=== PATIENT | male | born 1990 | race Caucasian/White ===

== ENCOUNTER 2017-12-20 20:53 | Emergency (ER) | payer OTHER, MEDICAID ==
[~2017-12-20] VITALS: Ht 154.9 cm; Wt 63.5 kg
[2017-12-20 20:53] VITALS: BP_SYST 118
[2017-12-20] MEDS ORDERED: GASTROGRAFIN 120 ML ONE (21:13)
[2017-12-20 21:41] VITALS: BP_SYST 118
== END 2017-12-20 21:41 | disposition home or self-care (01) ==
LOC: SED 20:53
DX: Z43.1 Encounter for attention to gastrostomy (principal); G80.9 Cerebral palsy, unspecified; I10 Essential (primary) hypertension
CPT/HCPCS: 43760; 74240; 99284; Q9963

== ENCOUNTER 2022-04-18 21:38 | Inpatient (IN) | payer OTHER, MEDICAID ==
[~2022-04-18] VITALS: Ht 152.4 cm; Wt 49.9 kg
[2022-04-18 21:43] VITALS: BP_SYST 77
[2022-04-18] MEDS ORDERED: NACL 0.9% 2,000 ML IV ONE (21:45)
[2022-04-18] MEDS ORDERED: PIPERACILLIN/TAZO 3.375 GM in NS 50 ML IV ONE (22:00)
[2022-04-18] MEDS ORDERED: VANCOMYCIN HCL 1,000 MG in NS 250 ML IV ONE (22:00)
[2022-04-18] MEDS ORDERED: VANCOMYCIN HCL 1000 MG/VIAL IV ONE (22:10)
[2022-04-18] MEDS ORDERED: PIPERACILLIN/TAZOBACTAM 3.375 GM/VIAL (ZOSYN) IV ONE (22:12)
[2022-04-18 22:13] LABS: HEMATOCRIT 32.3 % (36-54); HEMOGLOBIN 10.9 g/dL (14.0-18.0); MEAN CORPUSCULAR HEMOGLOBIN 30 pg (27-31); MEAN CORPUSCULAR HGB CONC 34 % (32-36); MEAN CORPUSCULAR VOLUME 88 fL (79.0-98.0); PLATELET COUNT (AUTO) 149 K/uL (130-430); RED CELL DISTRIBUTION WIDTH 13.5 % (9.0-15.0); WHITE BLOOD COUNT (AUTO) 21.2 K/uL (4.8-10.8)
[2022-04-18] MEDS ORDERED: ACETAMINOPHEN 650 MG SUPP.RECT RC ONE ×2 (22:30→22:37)
[2022-04-18 22:33] LABS: CALCIUM 8.1 mg/dL (8.4-11.0); CREATININE 0.45 mg/dL (0.55-1.30); POTASSIUM 3.1 mmol/L (3.5-5.1)
[2022-04-18] MEDS ORDERED: ACETAMINOPHEN 325 MG SUPP.RECT RC ONE (22:36)
[2022-04-18 22:48] LABS: ALBUMIN 2.4 g/dL (3.4-4.8); TOTAL BILIRUBIN 0.5 mg/dL (0.0-1.0)
[2022-04-18 23:01] LABS: BAND % (MANUAL) 3 % (0-6); BASOPHILS % (MANUAL) 0 % (0-2); EOSINOPHILS % (MANUAL) 0 % (0-7); LYMPHOCYTES % (MANUAL) 3 % (20-46); MONOCYTES % (MANUAL) 3 % (0-11)
[2022-04-18 23:29] LABS: BILIRUBIN,URINE NEGATIVE (NEGATIVE); BLOOD, URINE 1+ (NEGATIVE); CLARITY/URINE CLEAR (CLEAR); COLOR,URINE YELLOW (YELLOW); GLUCOSE,URINE NEGATIVE (NEGATIVE); KETONES,URINE NEGATIVE (NEGATIVE); LEUKOCYTE ESTERASE ,URINE 2+ (NEGATIVE); NITRITE, URINE NEGATIVE (NEGATIVE); PROTEIN URINE 1+ (NEGATIVE)
[2022-04-18] MEDS ORDERED: KCL 20 mEq in 100 mL (PREMIX) 100 ML IV ONE (23:45)
[2022-04-19] VITALS (15 sets, daily range): BP systolic 79–134
[2022-04-19] MEDS ORDERED: IPRATROPIUM/ALBUTEROL SULFATE 3 ML AMPUL.NEB (DUONEB) INH ONE (00:15)
[2022-04-19 00:54] LABS: BACTERIA,URINE None Seen /HPF (None Seen); MUCUS,URINE 2+ /LPF (None Seen); WBC,URINE 20-50 /HPF (0-3)
[2022-04-19] MEDS ORDERED: ACETAMINOPHEN 325 MG TABLET GT PRN (01:00)
[2022-04-19] MEDS ORDERED: NACL 0.9% 1,000 ML IV SCH ×2 (01:00→01:30)
[2022-04-19] MEDS ORDERED: IPRATROPIUM/ALBUTEROL SULFATE 3 ML AMPUL.NEB (DUONEB) INH PRN (01:00)
[2022-04-19] MEDS ORDERED: KETOROLAC TROMETHAMINE 30 MG VIAL IVP ONE (01:30)
[2022-04-19] MEDS ORDERED: POLY1POW14 GT (01:45)
[2022-04-19] MEDS ORDERED: FAMO20TA8 GT (01:45)
[2022-04-19] MEDS ORDERED: TYLL650 GT (01:45)
[2022-04-19] MEDS ORDERED: MOM GT (01:45)
[2022-04-19] MEDS ORDERED: ASCO500T20 GT (01:45)
[2022-04-19] MEDS ORDERED: AMIN30LI2 GT (01:45)
[2022-04-19] MEDS ORDERED: ZINC50TA69 GT (01:45)
[2022-04-19] MEDS ORDERED: GLYC2TAB21 GT (01:45)
[2022-04-19] MEDS ORDERED: MULT-1117 GT (01:45)
[2022-04-19] MEDS ORDERED: POTA-197 GT (01:45)
[2022-04-19] MEDS ORDERED: ONDA4TAB55 GT (01:45)
[2022-04-19] MEDS ORDERED: IPRA4AER INH (01:45)
[2022-04-19] MEDS ORDERED: PIPERACILLIN/TAZO 3.375 GM in NS 50 ML IV SCH (06:00)
[2022-04-19] MEDS ORDERED: NACL 0.9% 1,000 ML IV STA (06:20)
[2022-04-19] MEDS: NACL 0.9% 1,000 ML IV SCH ×8 (06:23→13:37)
[2022-04-19] MEDS ORDERED: PIPERACILLIN/TAZOBACTAM 3.375 GM/VIAL (ZOSYN) IV ONE (06:29)
[2022-04-19] MEDS ORDERED: NOREPINEPHRINE BITARTRATE 4 MG in D5W 246 ML IV PRN ×2 (07:45→14:15)
[2022-04-19] MEDS ORDERED: NOREPINEPHRINE 4 MG/4 ML VIAL IV ONE (07:51)
[2022-04-19] MEDS: IPRATROPIUM/ALBUTEROL SULFATE 3 ML AMPUL.NEB (DUONEB) INH SCH ×5 (08:05→23:18)
[2022-04-19] MEDS ORDERED: NON-FORMULARY MEDICATION (Amino Acids/Protein Hydrolys (Pro-Stat Liquid) 30 ML) GT SCH (09:30)
[2022-04-19] MEDS ORDERED: FAMOTIDINE 20 MG TABLET GT ONE (10:00)
[2022-04-19] MEDS ORDERED: ASCORBIC ACID 500 MG TABLET GT ONE (10:00)
[2022-04-19] MEDS ORDERED: POLYETHYLENE GLYCOL 3350, 17 GM/ POWD.PACK GT PRN (10:45)
[2022-04-19] MEDS: VANCOMYCIN HCL 750 MG in NS 250 ML IV SCH ×2 (11:00→23:07)
[2022-04-19] MEDS ORDERED: D5NS 1,000 ML IV SCH (11:00)
[2022-04-19 11:32] LABS: INR 1.3 (0.80-1.20); PROTHROMBIN TIME 13.2 SECS (9.5-12.5)
[2022-04-19 11:50] LABS: BASOPHILS % (AUTO) 0.1 % (0.0-2.0); HEMOGLOBIN 11.4 g/dL (14.0-18.0); LYMPHOCYTES # (AUTO) 0.8 K/uL (1.0-5.5); LYMPHOCYTES % (AUTO) 3.7 % (20.5-51.5); MEAN CORPUSCULAR HEMOGLOBIN 30 pg (27-31); MEAN CORPUSCULAR HGB CONC 33 % (32-36); MEAN CORPUSCULAR VOLUME 91 fL (79.0-98.0); MONOCYTES # (AUTO) 1.6 K/uL (0.0-1.0); MONOCYTES % (AUTO) 7.1 % (1.7-9.3); NEUTROPHILS # (AUTO) 19.9 K/uL (1.8-7.7); NEUTROPHILS % (AUTO) 89.1 % (40.0-70.0); PLATELET COUNT (AUTO) 114 K/uL (130-430); RED BLOOD CELL COUNT(AUTO) 3.83 MIL/uL (4.2-6.2); RED CELL DISTRIBUTION WIDTH 14.3 % (9.0-15.0); WHITE BLOOD COUNT (AUTO) 22.4 K/uL (4.8-10.8)
[2022-04-19 11:55] LABS: CALCIUM 7.8 mg/dL (8.4-11.0); CREATININE 0.5 mg/dL (0.55-1.30); TOTAL BILIRUBIN 0.4 mg/dL (0.0-1.0)
[2022-04-19 12:01] LABS: POTASSIUM 2.9 mmol/L (3.5-5.1)
[2022-04-19] MEDS: POTASSIUM CHLORIDE 20 MEQ/PKT PACKET GT PRN (12:29)
[2022-04-19] MEDS: PIPERACILLIN/TAZOBACTAM 3.375 GM/ D5W 50 ML IV SCH ×4 (12:29→18:06)
[2022-04-19] MEDS ORDERED: KCL 40 mEq in D5W 1000 mL 1,000 ML IV ONE (12:30)
[2022-04-19] MEDS ORDERED: KCL 20 mEq in 100 mL (PREMIX) 100 ML IV ONE ×2 (13:00→15:00)
[2022-04-19] MEDS ORDERED: POTASSIUM CHLORIDE 20 MEQ/PKT PACKET GT ONE (13:45)
[2022-04-19] MEDS: KCL 20 mEq in D5NS 1000 mL 1,000 ML IV SCH ×2 (14:30→21:10)
[2022-04-19] MEDS: GLYCOPYRROLATE 1 MG TABLET GT SCH ×2 (15:00→21:24)
[2022-04-19] MEDS: FAMOTIDINE 20 MG TABLET GT SCH (21:24)
[2022-04-20] VITALS (22 sets, daily range): BP systolic 91–131
[2022-04-20] MEDS: PIPERACILLIN/TAZOBACTAM 3.375 GM/ D5W 50 ML IV SCH ×6 (00:46→11:42)
[2022-04-20] MEDS: IPRATROPIUM/ALBUTEROL SULFATE 3 ML AMPUL.NEB (DUONEB) INH SCH ×5 (04:19→19:45)
[2022-04-20] MEDS: KCL 20 mEq in D5NS 1000 mL 1,000 ML IV SCH ×2 (05:42→09:50)
[2022-04-20 06:09] LABS: BASOPHILS % (AUTO) 0.1 % (0.0-2.0); HEMATOCRIT 27.9 % (36-54); HEMOGLOBIN 9.7 g/dL (14.0-18.0); LYMPHOCYTES # (AUTO) 0.6 K/uL (1.0-5.5); LYMPHOCYTES % (AUTO) 5.5 % (20.5-51.5); MEAN CORPUSCULAR HEMOGLOBIN 31 pg (27-31); MEAN CORPUSCULAR HGB CONC 35 % (32-36); MEAN CORPUSCULAR VOLUME 88 fL (79.0-98.0); MONOCYTES # (AUTO) 0.8 K/uL (0.0-1.0); MONOCYTES % (AUTO) 8.3 % (1.7-9.3); NEUTROPHILS # (AUTO) 8.6 K/uL (1.8-7.7); NEUTROPHILS % (AUTO) 86.1 % (40.0-70.0); PLATELET COUNT (AUTO) 117 K/uL (130-430); RED BLOOD CELL COUNT(AUTO) 3.17 MIL/uL (4.2-6.2); RED CELL DISTRIBUTION WIDTH 14.4 % (9.0-15.0)
[2022-04-20 07:08] LABS: CALCIUM 7.9 mg/dL (8.4-11.0); CREATININE 0.41 mg/dL (0.55-1.30); POTASSIUM 3.5 mmol/L (3.5-5.1)
[2022-04-20] MEDS: MULTIVITAMINS TAB 1 TABLET GT SCH (08:03)
[2022-04-20] MEDS: FAMOTIDINE 20 MG TABLET GT SCH ×2 (08:04→20:44)
[2022-04-20] MEDS: ASCORBIC ACID 500 MG TABLET GT SCH (08:04)
[2022-04-20] MEDS: GLYCOPYRROLATE 1 MG TABLET GT SCH ×3 (08:04→20:44)
[2022-04-20] MEDS: VANCOMYCIN HCL 750 MG in NS 250 ML IV SCH ×2 (10:18→23:00)
[2022-04-20] MEDS: ACETAMINOPHEN 650 MG/20.3 ML UDC GT PRN (19:39)
[2022-04-20] MEDS: CEFEPIME 2 GM in D5W 100 ML IV SCH (20:44)
[2022-04-21] VITALS: BP_SYST 121
[2022-04-21] MEDS: IPRATROPIUM/ALBUTEROL SULFATE 3 ML AMPUL.NEB (DUONEB) INH SCH ×7 (00:50→23:07)
[2022-04-21] MEDS: CEFEPIME 2 GM in D5W 100 ML IV SCH ×2 (10:00→20:59)
[2022-04-21] MEDS: ASCORBIC ACID 500 MG TABLET GT SCH (10:00)
[2022-04-21] MEDS: MULTIVITAMINS TAB 1 TABLET GT SCH (10:01)
[2022-04-21] MEDS: GLYCOPYRROLATE 1 MG TABLET GT SCH ×3 (10:01→20:59)
[2022-04-21] MEDS: FAMOTIDINE 20 MG TABLET GT SCH ×2 (10:01→20:59)
[2022-04-21] MEDS: VANCOMYCIN HCL 750 MG in NS 250 ML IV SCH (11:00)
[2022-04-21 11:56] LABS: BASOPHILS % (AUTO) 0.6 % (0.0-2.0); EOSINOPHILS % (AUTO) 0.5 % (0.0-4.0); HEMATOCRIT 28.4 % (36-54); HEMOGLOBIN 9.7 g/dL (14.0-18.0); LYMPHOCYTES # (AUTO) 0.7 K/uL (1.0-5.5); LYMPHOCYTES % (AUTO) 12.6 % (20.5-51.5); MEAN CORPUSCULAR HEMOGLOBIN 30 pg (27-31); MEAN CORPUSCULAR HGB CONC 34 % (32-36); MEAN CORPUSCULAR VOLUME 88 fL (79.0-98.0); MONOCYTES # (AUTO) 0.7 K/uL (0.0-1.0); MONOCYTES % (AUTO) 12.2 % (1.7-9.3); NEUTROPHILS # (AUTO) 4.3 K/uL (1.8-7.7); NEUTROPHILS % (AUTO) 74.1 % (40.0-70.0); PLATELET COUNT (AUTO) 122 K/uL (130-430); RED BLOOD CELL COUNT(AUTO) 3.24 MIL/uL (4.2-6.2); RED CELL DISTRIBUTION WIDTH 14.1 % (9.0-15.0); WHITE BLOOD COUNT (AUTO) 5.8 K/uL (4.8-10.8)
[2022-04-21 13:38] VITALS: BP_SYST 118
[2022-04-21 16:09] VITALS: BP_SYST 123
[2022-04-21] MEDS: VANCOMYCIN HCL 1,000 MG in NS 250 ML IV SCH (20:58)
[2022-04-21 21:00] VITALS: BP_SYST 125
[2022-04-22 02:00] VITALS: BP_SYST 119
[2022-04-22] MEDS: IPRATROPIUM/ALBUTEROL SULFATE 3 ML AMPUL.NEB (DUONEB) INH SCH ×4 (03:00→15:16)
[2022-04-22] MEDS: VANCOMYCIN HCL 1,000 MG in NS 250 ML IV SCH ×2 (03:00→10:31)
[2022-04-22 06:33] LABS: BASOPHILS % (AUTO) 0.5 % (0.0-2.0); HEMATOCRIT 28.7 % (36-54); LYMPHOCYTES % (AUTO) 19.7 % (20.5-51.5); MEAN CORPUSCULAR HEMOGLOBIN 30 pg (27-31); MEAN CORPUSCULAR HGB CONC 35 % (32-36); MEAN CORPUSCULAR VOLUME 87 fL (79.0-98.0); MONOCYTES # (AUTO) 0.6 K/uL (0.0-1.0); MONOCYTES % (AUTO) 12.3 % (1.7-9.3); NEUTROPHILS # (AUTO) 3.4 K/uL (1.8-7.7); NEUTROPHILS % (AUTO) 66.5 % (40.0-70.0); PLATELET COUNT (AUTO) 130 K/uL (130-430); RED BLOOD CELL COUNT(AUTO) 3.31 MIL/uL (4.2-6.2); RED CELL DISTRIBUTION WIDTH 13.9 % (9.0-15.0); WHITE BLOOD COUNT (AUTO) 5.2 K/uL (4.8-10.8)
[2022-04-22 07:05] LABS: CALCIUM 7.9 mg/dL (8.4-11.0); CREATININE 0.34 mg/dL (0.55-1.30)
[2022-04-22] MEDS: GLYCOPYRROLATE 1 MG TABLET GT SCH ×3 (08:16→20:10)
[2022-04-22] MEDS: MULTIVITAMINS TAB 1 TABLET GT SCH (08:16)
[2022-04-22] MEDS: FAMOTIDINE 20 MG TABLET GT SCH ×2 (08:16→20:10)
[2022-04-22] MEDS: ASCORBIC ACID 500 MG TABLET GT SCH (08:16)
[2022-04-22] MEDS: CEFEPIME 2 GM in D5W 100 ML IV SCH (08:17)
[2022-04-22 09:19] VITALS: BP_SYST 119
[2022-04-22 12:12] VITALS: BP_SYST 109
[2022-04-22] MEDS ORDERED: POTASSIUM CHLORIDE 20 MEQ/PKT PACKET GT ONE (14:15)
[2022-04-22] MEDS ORDERED: POTASSIUM CHLORIDE 20 MEQ/PKT PACKET PO ONE (14:15)
[2022-04-22 16:00] VITALS: BP_SYST 119
[2022-04-22 20:00] VITALS: BP_SYST 117
[2022-04-23] MEDS: IPRATROPIUM/ALBUTEROL SULFATE 3 ML AMPUL.NEB (DUONEB) INH SCH ×6 (00:01→15:00)
[2022-04-23 00:50] VITALS: BP_SYST 116
[2022-04-23 06:51] LABS: BASOPHILS % (AUTO) 0.6 % (0.0-2.0); EOSINOPHILS # (AUTO) 0.1 K/uL (0.0-0.4); EOSINOPHILS % (AUTO) 1.6 % (0.0-4.0); HEMATOCRIT 30.7 % (36-54); HEMOGLOBIN 10.7 g/dL (14.0-18.0); LYMPHOCYTES # (AUTO) 0.9 K/uL (1.0-5.5); LYMPHOCYTES % (AUTO) 17.2 % (20.5-51.5); MEAN CORPUSCULAR HEMOGLOBIN 30 pg (27-31); MEAN CORPUSCULAR HGB CONC 35 % (32-36); MEAN CORPUSCULAR VOLUME 86 fL (79.0-98.0); MONOCYTES # (AUTO) 0.6 K/uL (0.0-1.0); NEUTROPHILS # (AUTO) 3.5 K/uL (1.8-7.7); NEUTROPHILS % (AUTO) 69.6 % (40.0-70.0); PLATELET COUNT (AUTO) 154 K/uL (130-430); RED BLOOD CELL COUNT(AUTO) 3.56 MIL/uL (4.2-6.2); WHITE BLOOD COUNT (AUTO) 5.1 K/uL (4.8-10.8)
[2022-04-23 08:00] VITALS: BP_SYST 113
[2022-04-23 08:07] LABS: CALCIUM 8.2 mg/dL (8.4-11.0); CREATININE 0.36 mg/dL (0.55-1.30); POTASSIUM 3.4 mmol/L (3.5-5.1)
[2022-04-23] MEDS: MULTIVITAMINS TAB 1 TABLET GT SCH (09:02)
[2022-04-23] MEDS: FAMOTIDINE 20 MG TABLET GT SCH (09:02)
[2022-04-23] MEDS: GLYCOPYRROLATE 1 MG TABLET GT SCH ×2 (09:02→15:56)
[2022-04-23] MEDS: POTASSIUM CHLORIDE 20 MEQ/PKT PACKET GT PRN (09:03)
[2022-04-23] MEDS: ASCORBIC ACID 500 MG TABLET GT SCH (09:03)
[2022-04-23] MEDS: ACETAMINOPHEN 650 MG/20.3 ML UDC GT PRN (09:04)
[2022-04-23 12:01] VITALS: BP_SYST 108
[2022-04-23 14:48] VITALS: BP_SYST 108; BP_SYST 113
[2022-04-23 16:32] VITALS: BP_SYST 115
== END 2022-04-23 16:40 | DRG 871 ==
LOC: SED 21:38 → STU 04-19 00:52 → SIC 04-19 10:35 → STU 04-20 21:24
PROVIDERS: ADMIT Internal Medicine; ATTEND Internal Medicine
DX: A41.2 Sepsis due to unspecified staphylococcus (principal); E43 Unspecified severe protein-calorie malnutrition; J69.0 Pneumonitis due to inhalation of food and vomit; R65.21 Severe sepsis with septic shock; J96.00 Acute respiratory failure, unspecified whether with hypoxia or hypercapnia; N13.6 Pyonephrosis; G80.9 Cerebral palsy, unspecified; Z20.822 Contact with and (suspected) exposure to COVID-19; B96.89 Other specified bacterial agents as the cause of diseases classified elsewhere; D64.9 Anemia, unspecified; F03.90 Unspecified dementia, unspecified severity, without behavioral disturbance, psychotic disturbance, mood disturbance, and anxiety; Z87.440 Personal history of urinary (tract) infections; Z79.899 Other long term (current) drug therapy; Z93.1 Gastrostomy status; Z68.21 Body mass index [BMI] 21.0-21.9, adult
CPT/HCPCS: 36415; 71045; 76770; 80048; 80053; 80202; 81000; 83605; 84132; 85007; 85025; 85027; 85610-TC; 85730-TC; 87040; 87081; 94640; 94760; 96374; 96375; 99291; G0378; J0692; J0696; J1885; J2543; J3370; J3480; J7050; J7060

== ENCOUNTER 2022-10-09 04:15 | Inpatient (IN) | payer OTHER, MEDICAID ==
[~2022-10-09] VITALS: Ht 152.4 cm; Wt 44.9 kg
[~2022-10-09 04:15] MED LIST: AMIN30LI2 GT; ASCO500T20 GT; FAMO20TA8 GT; GLYC2TAB21 GT; MULT-1117 GT; POLY1POW14 GT; POTA-197 GT; TYLL650 GT
[2022-10-09] MEDS ORDERED: NACL 0.9% 1,000 ML IV ONE (04:30)
[2022-10-09 04:33] VITALS: BP_SYST 114
[2022-10-09 05:02] LABS: BASOPHILS % (AUTO) 0.5 % (0.0-2.0); EOSINOPHILS % (AUTO) 0.8 % (0.0-4.0); HEMATOCRIT 31.9 % (36-54); LYMPHOCYTES # (AUTO) 1.1 K/uL (1.0-5.5); LYMPHOCYTES % (AUTO) 20.9 % (20.5-51.5); MEAN CORPUSCULAR HEMOGLOBIN 30 pg (27-31); MEAN CORPUSCULAR HGB CONC 35 % (32-36); MEAN CORPUSCULAR VOLUME 85 fL (79.0-98.0); MONOCYTES # (AUTO) 0.9 K/uL (0.0-1.0); MONOCYTES % (AUTO) 17.4 % (1.7-9.3); NEUTROPHILS # (AUTO) 3.3 K/uL (1.8-7.7); NEUTROPHILS % (AUTO) 60.4 % (40.0-70.0); PLATELET COUNT (AUTO) 179 K/uL (130-430); RED BLOOD CELL COUNT(AUTO) 3.74 MIL/uL (4.2-6.2); RED CELL DISTRIBUTION WIDTH 14.4 % (9.0-15.0); WHITE BLOOD COUNT (AUTO) 5.4 K/uL (4.8-10.8)
[2022-10-09] MEDS ORDERED: PIPERACILLIN/TAZO 3.375 GM in NS 50 ML IV ONE (05:15)
[2022-10-09 05:21] LABS: ANION GAP 7 (5-15); CALCIUM 8.8 mg/dL (8.4-11.0); CHLORIDE 99 mmol/L (98-107); CREATININE 0.22 mg/dL (0.55-1.30); GLUCOSE 104 mg/dL (70-99); UREA NITROGEN, BLOOD 19 mg/dL (8-21)
[2022-10-09 05:28] LABS: ALANINE AMINOTRANSFERASE 58 U/L (12-78); ALBUMIN 2.8 g/dL (3.4-4.8); ASPARTATE AMINOTRANSFERASE 37 U/L (10-37); GFR AFRICAN AMERICAN 648 mL/min (>90); TOTAL BILIRUBIN 0.3 mg/dL (0.0-1.0)
[2022-10-09] MEDS ORDERED: PIPERACILLIN/TAZOBACTAM 3.375 GM/VIAL (ZOSYN) IV ONE (05:37)
[2022-10-09] MEDS ORDERED: VANCOMYCIN HCL 1,000 MG in NS 250 ML IV ONE (06:00)
[2022-10-09] MEDS ORDERED: VANCOMYCIN HCL 1000 MG/VIAL IV ONE (06:42)
[2022-10-09] MEDS ORDERED: IPRATROPIUM/ALBUTEROL SULFATE 3 ML AMPUL.NEB (DUONEB) INH SCH (07:00)
[2022-10-09] MEDS ORDERED: POLY15DR31 EACH EYE (07:08)
[2022-10-09] MEDS ORDERED: DOCU-144 GT (07:09)
[2022-10-09] MEDS ORDERED: [UNRECOGNIZED DRUG - CODE] OT (07:10)
[2022-10-09] MEDS ORDERED: CARB15DR93 EACH EAR (07:11)
[2022-10-09] MEDS ORDERED: IPRA3AMP9 INH (07:12)
[2022-10-09] MEDS ORDERED: MINE3.5O13 OP (07:13)
[2022-10-09] MEDS ORDERED: MULT-1094 GT (07:15)
[2022-10-09 07:17] LABS: BILIRUBIN,URINE NEGATIVE (NEGATIVE); BLOOD, URINE 3+ (NEGATIVE); CLARITY/URINE TURBID (CLEAR); COLOR,URINE YELLOW (YELLOW); GLUCOSE,URINE NEGATIVE (NEGATIVE); KETONES,URINE NEGATIVE (NEGATIVE); LEUKOCYTE ESTERASE ,URINE 3+ (NEGATIVE); NITRITE, URINE POSITIVE (NEGATIVE); PROTEIN URINE 1+ (NEGATIVE); UROBILINOGEN,URINE 0.2 (0.2-1.0)
[2022-10-09] MEDS ORDERED: [UNRECOGNIZED DRUG - CODE] GT (07:19)
[2022-10-09] MEDS ORDERED: LOPE2CAP GT (07:21)
[2022-10-09] MEDS ORDERED: LOPE-179 GT (07:22)
[2022-10-09] MEDS ORDERED: ERYEYE EACH EYE (07:23)
[2022-10-09] MEDS ORDERED: BISA10SU61 RC (07:24)
[2022-10-09] MEDS ORDERED: IBUP-1970 GT (07:25)
[2022-10-09] MEDS ORDERED: MIDO2.5T GT (07:26)
[2022-10-09 07:40] LABS: BACTERIA,URINE MANY /HPF (None Seen); WBC,URINE 20-50 /HPF (0-3)
[2022-10-09 07:41] LABS: URINE AMORPHOUS PHOSPHATES 2+ /HPF (None Seen)
[2022-10-09 10:20] VITALS: BP_SYST 91
[2022-10-09] MEDS ORDERED: IBUPROFEN 800 MG TABLET GT PRN (11:45)
[2022-10-09] MEDS ORDERED: LOPERAMIDE HCL 1 MG/7.5 ML LIQUID UDC GT SCH (11:45)
[2022-10-09] MEDS ORDERED: BISACODYL 10 MG/SUPPOSITORY RC PRN (11:45)
[2022-10-09] MEDS ORDERED: LOPERAMIDE HCL 2 MG CAPSULE GT PRN (11:45)
[2022-10-09] MEDS ORDERED: ERYTHROMYCIN 0.5% EYE OINT 3.5 GM OP PRN (11:45)
[2022-10-09] MEDS ORDERED: IPRATROPIUM/ALBUTEROL SULFATE 3 ML AMPUL.NEB (DUONEB) INH PRN (11:45)
[2022-10-09] MEDS ORDERED: DOCUSATE SODIUM 100 MG CAPSULE PO PRN (11:45)
[2022-10-09] MEDS ORDERED: ACETAMINOPHEN 650 MG/20.3 ML UDC GT PRN (11:45)
[2022-10-09] MEDS ORDERED: MIDODRINE HCL 2.5 MG TABLET (PROAMATINE) GT PRN (11:45)
[2022-10-09] MEDS ORDERED: POLYETHYLENE GLYCOL 3350, 17 GM/ POWD.PACK GT PRN (11:45)
[2022-10-09] MEDS: KCL 20 mEq in D5NS 1000 mL 1,000 ML IV SCH (11:53)
[2022-10-09] MEDS ORDERED: ASCORBIC ACID 500 MG TABLET GT ONE (12:00)
[2022-10-09] MEDS ORDERED: PIPERACILLIN/TAZO 3.375 GM in NS 50 ML IV SCH (12:00)
[2022-10-09] MEDS: ALBUTEROL MDI INHALATION 8 GM INH INH SCH ×2 (12:14→20:03)
[2022-10-09] MEDS ORDERED: POTASSIUM CHLORIDE 20 MEQ/PKT PACKET GT PRN (12:15)
[2022-10-09] MEDS ORDERED: DOCUSATE SODIUM 100 MG/10 ML UDC PO PRN (12:15)
[2022-10-09] MEDS ORDERED: ALBUTEROL MDI INHALATION 8 GM INH INH PRN (12:15)
[2022-10-09 12:57] VITALS: BP_SYST 98
[2022-10-09] MEDS ORDERED: ALBUTEROL SULFATE 0.083% 2.5 MG/3 ML VIAL.NEB INH SCH (13:00)
[2022-10-09] MEDS ORDERED: PEG 400/HYPROMELLOSE/GLYCERIN 15 ML DROPS OP PRN (13:00)
[2022-10-09] MEDS: cefTRIAXone 1 GM in D5W 50 ML IV SCH (13:54)
[2022-10-09] MEDS: AZITHROMYCIN 500 MG in NS 250 ML IV SCH (13:54)
[2022-10-09] MEDS ORDERED: VANCOMYCIN HCL 750 MG in NS 250 ML IV SCH (14:00)
[2022-10-09] MEDS: GLYCOPYRROLATE 1 MG TABLET GT SCH ×2 (15:28→22:17)
[2022-10-09 16:05] VITALS: BP_SYST 114
[2022-10-09 20:00] VITALS: BP_SYST 101
[2022-10-09] MEDS ORDERED: CARBAMIDE PEROXIDE 6.5% EAR DROPS (DEBROX) OT SCH (21:00)
[2022-10-09] MEDS: ENOXAPARIN SODIUM 40 MG/0.4 ML SYRINGE SUBCUT SCH (22:15)
[2022-10-09] MEDS: FAMOTIDINE 20 MG TABLET GT SCH (22:17)
[2022-10-09] MEDS: METHYLPREDNISOLONE SOD SUCC 40 MG/ML VIAL IVP SCH (22:17)
[2022-10-09] MEDS: PEG 400/HYPROMELLOSE/GLYCERIN 15 ML DROPS EACH EYE SCH (22:18)
[2022-10-10] MEDS: KCL 20 mEq in D5NS 1000 mL 1,000 ML IV SCH ×3 (00:43→12:54)
[2022-10-10] MEDS: ALBUTEROL MDI INHALATION 8 GM INH INH SCH ×4 (00:44→20:46)
[2022-10-10 02:08] VITALS: BP_SYST 101
[2022-10-10 08:00] VITALS: BP_SYST 94
[2022-10-10] MEDS ORDERED: MULTIVITS CA MINERALS GT SCH (09:00)
[2022-10-10] MEDS ORDERED: NON-FORMULARY MEDICATION (Amino Acids/Protein Hydrolys (Pro-Stat Liquid) 30 ML) GT SCH (09:00)
[2022-10-10] MEDS ORDERED: [UNRECOGNIZED DRUG - OTHER] GT SCH (09:00)
[2022-10-10] MEDS ORDERED: IRON GT SCH (09:00)
[2022-10-10 09:05] LABS: BASOPHILS % (AUTO) 0.3 % (0.0-2.0); HEMATOCRIT 29.7 % (36-54); HEMOGLOBIN 9.9 g/dL (14.0-18.0); LYMPHOCYTES # (AUTO) 0.7 K/uL (1.0-5.5); LYMPHOCYTES % (AUTO) 16.6 % (20.5-51.5); MEAN CORPUSCULAR HEMOGLOBIN 30 pg (27-31); MEAN CORPUSCULAR HGB CONC 33 % (32-36); MEAN CORPUSCULAR VOLUME 89 fL (79.0-98.0); MONOCYTES # (AUTO) 0.3 K/uL (0.0-1.0); MONOCYTES % (AUTO) 7.9 % (1.7-9.3); NEUTROPHILS % (AUTO) 75.2 % (40.0-70.0); PLATELET COUNT (AUTO) 149 K/uL (130-430); RED BLOOD CELL COUNT(AUTO) 3.32 MIL/uL (4.2-6.2)
[2022-10-10] MEDS: MULTIVITAMINS TAB 1 TABLET GT SCH (09:38)
[2022-10-10] MEDS: GLYCOPYRROLATE 1 MG TABLET GT SCH ×3 (09:38→22:22)
[2022-10-10] MEDS: ASCORBIC ACID 500 MG TABLET GT SCH (09:39)
[2022-10-10] MEDS: FAMOTIDINE 20 MG TABLET GT SCH ×2 (09:39→22:22)
[2022-10-10] MEDS: PEG 400/HYPROMELLOSE/GLYCERIN 15 ML DROPS EACH EYE SCH ×2 (09:39→21:00)
[2022-10-10] MEDS: METHYLPREDNISOLONE SOD SUCC 40 MG/ML VIAL IVP SCH ×2 (10:20→22:22)
[2022-10-10 11:40] LABS: ANION GAP 7 (5-15); CALCIUM 8.7 mg/dL (8.4-11.0); CHLORIDE 107 mmol/L (98-107); GLUCOSE 174 mg/dL (70-99); UREA NITROGEN, BLOOD 13 mg/dL (8-21)
[2022-10-10 11:54] VITALS: BP_SYST 107
[2022-10-10 11:57] LABS: CREATININE < 0.20 mg/dL (0.55-1.30); GFR AFRICAN AMERICAN 723 mL/min (>90)
[2022-10-10] MEDS: cefTRIAXone 1 GM in D5W 50 ML IV SCH (12:12)
[2022-10-10] MEDS: AZITHROMYCIN 500 MG in NS 250 ML IV SCH (12:53)
[2022-10-10 17:44] VITALS: BP_SYST 105
[2022-10-10] MEDS: ENOXAPARIN SODIUM 40 MG/0.4 ML SYRINGE SUBCUT SCH (22:22)
[2022-10-11] MEDS: KCL 20 mEq in D5NS 1000 mL 1,000 ML IV SCH ×3 (01:09→22:29)
[2022-10-11] MEDS: ALBUTEROL MDI INHALATION 8 GM INH INH SCH ×4 (01:36→22:35)
[2022-10-11 01:56] VITALS: BP_SYST 102
[2022-10-11 04:00] VITALS: BP_SYST 106
[2022-10-11 08:00] VITALS: BP_SYST 109
[2022-10-11] MEDS: METHYLPREDNISOLONE SOD SUCC 40 MG/ML VIAL IVP SCH ×2 (10:36→22:26)
[2022-10-11] MEDS: ASCORBIC ACID 500 MG TABLET GT SCH (10:43)
[2022-10-11] MEDS: GLYCOPYRROLATE 1 MG TABLET GT SCH ×3 (10:43→22:26)
[2022-10-11] MEDS: FAMOTIDINE 20 MG TABLET GT SCH ×2 (10:44→22:26)
[2022-10-11] MEDS: PEG 400/HYPROMELLOSE/GLYCERIN 15 ML DROPS EACH EYE SCH ×2 (10:45→23:09)
[2022-10-11] MEDS: MULTIVITAMINS TAB 1 TABLET GT SCH (10:45)
[2022-10-11 11:55] VITALS: BP_SYST 121
[2022-10-11] MEDS: cefTRIAXone 1 GM in D5W 50 ML IV SCH (12:39)
[2022-10-11] MEDS: AZITHROMYCIN 500 MG in NS 250 ML IV SCH (14:35)
[2022-10-11 16:40] VITALS: BP_SYST 113
[2022-10-11 21:30] VITALS: BP_SYST 106
[2022-10-11] MEDS: ENOXAPARIN SODIUM 40 MG/0.4 ML SYRINGE SUBCUT SCH ×3 (22:29→23:09)
[2022-10-12] MEDS: ALBUTEROL MDI INHALATION 8 GM INH INH SCH ×3 (01:13→12:00)
[2022-10-12 04:00] VITALS: BP_SYST 97
[2022-10-12] MEDS: KCL 20 mEq in D5NS 1000 mL 1,000 ML IV SCH (06:00)
[2022-10-12 08:00] VITALS: BP_SYST 96
[2022-10-12 09:31] VITALS: BP_SYST 96
[2022-10-12] MEDS: ASCORBIC ACID 500 MG TABLET GT SCH (09:46)
[2022-10-12] MEDS: GLYCOPYRROLATE 1 MG TABLET GT SCH ×3 (09:46→21:41)
[2022-10-12] MEDS: MULTIVITAMINS TAB 1 TABLET GT SCH (09:46)
[2022-10-12] MEDS: FAMOTIDINE 20 MG TABLET GT SCH ×2 (09:46→21:41)
[2022-10-12] MEDS: PEG 400/HYPROMELLOSE/GLYCERIN 15 ML DROPS EACH EYE SCH ×2 (09:47→21:43)
[2022-10-12] MEDS: METHYLPREDNISOLONE SOD SUCC 40 MG/ML VIAL IVP SCH ×2 (10:34→21:41)
[2022-10-12 11:51] VITALS: BP_SYST 102
[2022-10-12] MEDS: KCL 20 mEq in NS 1000 mL 1,000 ML IV SCH ×2 (12:15→21:43)
[2022-10-12] MEDS: AZITHROMYCIN 500 MG in NS 250 ML IV SCH (13:38)
[2022-10-12] MEDS: cefTRIAXone 1 GM in D5W 50 ML IV SCH (13:39)
[2022-10-12 17:05] VITALS: BP_SYST 103
[2022-10-12 20:00] VITALS: BP_SYST 99
[2022-10-12] MEDS: ENOXAPARIN SODIUM 40 MG/0.4 ML SYRINGE SUBCUT SCH (21:41)
[2022-10-13] MEDS: ALBUTEROL MDI INHALATION 8 GM INH INH SCH ×4 (00:01→20:05)
[2022-10-13 02:19] VITALS: BP_SYST 100
[2022-10-13 06:15] LABS: BASOPHILS % (AUTO) 0.2 % (0.0-2.0); LYMPHOCYTES # (AUTO) 1.5 K/uL (1.0-5.5); LYMPHOCYTES % (AUTO) 18.4 % (20.5-51.5); MEAN CORPUSCULAR HEMOGLOBIN 30 pg (27-31); MEAN CORPUSCULAR HGB CONC 33 % (32-36); MEAN CORPUSCULAR VOLUME 89 fL (79.0-98.0); MONOCYTES # (AUTO) 0.2 K/uL (0.0-1.0); MONOCYTES % (AUTO) 2.6 % (1.7-9.3); NEUTROPHILS # (AUTO) 6.6 K/uL (1.8-7.7); NEUTROPHILS % (AUTO) 78.8 % (40.0-70.0); PLATELET COUNT (AUTO) 177 K/uL (130-430); RED BLOOD CELL COUNT(AUTO) 3.72 MIL/uL (4.2-6.2); WHITE BLOOD COUNT (AUTO) 8.4 K/uL (4.8-10.8)
[2022-10-13 06:27] LABS: ANION GAP 7 (5-15); CHLORIDE 103 mmol/L (98-107); GLUCOSE 107 mg/dL (70-99); UREA NITROGEN, BLOOD 8 mg/dL (8-21)
[2022-10-13 06:38] LABS: CREATININE < 0.20 mg/dL (0.55-1.30); GFR AFRICAN AMERICAN 723 mL/min (>90)
[2022-10-13 09:00] VITALS: BP_SYST 108
[2022-10-13] MEDS: METHYLPREDNISOLONE SOD SUCC 40 MG/ML VIAL IVP SCH ×2 (09:27→20:57)
[2022-10-13] MEDS: FAMOTIDINE 20 MG TABLET GT SCH ×2 (09:28→20:57)
[2022-10-13] MEDS: ASCORBIC ACID 500 MG TABLET GT SCH (09:28)
[2022-10-13] MEDS: GLYCOPYRROLATE 1 MG TABLET GT SCH ×3 (09:28→20:57)
[2022-10-13] MEDS: MULTIVITAMINS TAB 1 TABLET GT SCH (09:28)
[2022-10-13] MEDS: PEG 400/HYPROMELLOSE/GLYCERIN 15 ML DROPS EACH EYE SCH ×2 (09:29→20:58)
[2022-10-13] MEDS: KCL 20 mEq in NS 1000 mL 1,000 ML IV SCH ×2 (09:37→18:15)
[2022-10-13] MEDS: cefTRIAXone 1 GM in D5W 50 ML IV SCH (13:10)
[2022-10-13] MEDS: AMIKACIN SULFATE IV SCH (15:37)
[2022-10-13] MEDS: D5W IV SCH (15:37)
[2022-10-13 17:38] VITALS: BP_SYST 102
[2022-10-13 20:00] VITALS: BP_SYST 114
[2022-10-13] MEDS: ENOXAPARIN SODIUM 40 MG/0.4 ML SYRINGE SUBCUT SCH ×2 (20:58→21:00)
[2022-10-14] VITALS: BP_SYST 114
[2022-10-14] MEDS: ALBUTEROL MDI INHALATION 8 GM INH INH SCH ×3 (01:17→20:05)
[2022-10-14] MEDS: KCL 20 mEq in NS 1000 mL 1,000 ML IV SCH ×3 (04:15→22:34)
[2022-10-14 08:39] LABS: INR 1.1 (0.80-1.20)
[2022-10-14] MEDS: METHYLPREDNISOLONE SOD SUCC 40 MG/ML VIAL IVP SCH ×4 (09:00→22:16)
[2022-10-14] MEDS: MULTIVITAMINS TAB 1 TABLET GT SCH (09:12)
[2022-10-14] MEDS: FAMOTIDINE 20 MG TABLET GT SCH ×2 (09:12→22:16)
[2022-10-14] MEDS: ASCORBIC ACID 500 MG TABLET GT SCH (09:12)
[2022-10-14] MEDS: PEG 400/HYPROMELLOSE/GLYCERIN 15 ML DROPS EACH EYE SCH ×2 (09:13→22:15)
[2022-10-14 09:30] VITALS: BP_SYST 119
[2022-10-14] MEDS: GLYCOPYRROLATE 1 MG TABLET GT SCH ×3 (09:45→22:16)
[2022-10-14 12:00] VITALS: BP_SYST 123
[2022-10-14] MEDS: cefTRIAXone 1 GM in D5W 50 ML IV SCH (12:48)
[2022-10-14] MEDS: D5W IV SCH (15:29)
[2022-10-14] MEDS: AMIKACIN SULFATE IV SCH (15:29)
[2022-10-14 17:08] VITALS: BP_SYST 103
[2022-10-14 20:00] VITALS: BP_SYST 120
[2022-10-14] MEDS: ENOXAPARIN SODIUM 40 MG/0.4 ML SYRINGE SUBCUT SCH (21:00)
[2022-10-15 01:13] VITALS: BP_SYST 119
[2022-10-15] MEDS: ALBUTEROL MDI INHALATION 8 GM INH INH SCH ×4 (01:40→19:48)
[2022-10-15 08:15] VITALS: BP_SYST 126
[2022-10-15 08:38] VITALS: BP_SYST 119
[2022-10-15] MEDS: ASCORBIC ACID 500 MG TABLET GT SCH (10:44)
[2022-10-15] MEDS: FAMOTIDINE 20 MG TABLET GT SCH ×2 (10:44→22:20)
[2022-10-15] MEDS: MULTIVITAMINS TAB 1 TABLET GT SCH (10:44)
[2022-10-15] MEDS: GLYCOPYRROLATE 1 MG TABLET GT SCH ×3 (10:44→22:20)
[2022-10-15] MEDS: METHYLPREDNISOLONE SOD SUCC 40 MG/ML VIAL IVP SCH ×2 (10:45→22:20)
[2022-10-15] MEDS: KCL 20 mEq in NS 1000 mL 1,000 ML IV SCH ×2 (10:49→20:37)
[2022-10-15] MEDS: PEG 400/HYPROMELLOSE/GLYCERIN 15 ML DROPS EACH EYE SCH ×2 (11:11→22:19)
[2022-10-15 11:45] VITALS: BP_SYST 105
[2022-10-15] MEDS: cefTRIAXone 1 GM in D5W 50 ML IV SCH (15:20)
[2022-10-15 15:35] VITALS: BP_SYST 113; BP_SYST 136
[2022-10-15] MEDS: D5W IV SCH (16:00)
[2022-10-15] MEDS: AMIKACIN SULFATE IV SCH (16:00)
[2022-10-15 20:00] VITALS: BP_SYST 100
[2022-10-15] MEDS: ENOXAPARIN SODIUM 40 MG/0.4 ML SYRINGE SUBCUT SCH (21:00)
[2022-10-16 00:47] VITALS: BP_SYST 111
[2022-10-16] MEDS: ALBUTEROL MDI INHALATION 8 GM INH INH SCH ×4 (01:51→19:40)
[2022-10-16] MEDS: KCL 20 mEq in NS 1000 mL 1,000 ML IV SCH ×2 (06:44→16:44)
[2022-10-16] MEDS: METHYLPREDNISOLONE SOD SUCC 40 MG/ML VIAL IVP SCH ×2 (10:40→20:55)
[2022-10-16] MEDS: ASCORBIC ACID 500 MG TABLET GT SCH (10:41)
[2022-10-16] MEDS: FAMOTIDINE 20 MG TABLET GT SCH ×2 (10:41→20:55)
[2022-10-16] MEDS: GLYCOPYRROLATE 1 MG TABLET GT SCH ×3 (10:41→22:58)
[2022-10-16] MEDS: MULTIVITAMINS TAB 1 TABLET GT SCH (10:42)
[2022-10-16] MEDS: PEG 400/HYPROMELLOSE/GLYCERIN 15 ML DROPS EACH EYE SCH ×2 (10:43→21:07)
[2022-10-16 12:00] VITALS: BP_SYST 105
[2022-10-16 16:55] VITALS: BP_SYST 109
[2022-10-16] MEDS: AMIKACIN SULFATE IV SCH (18:19)
[2022-10-16] MEDS: D5W IV SCH (18:19)
[2022-10-16] MEDS: ENOXAPARIN SODIUM 40 MG/0.4 ML SYRINGE SUBCUT SCH (20:55)
[2022-10-16 21:13] VITALS: BP_SYST 98
[2022-10-17 01:05] VITALS: BP_SYST 105
[2022-10-17] MEDS: ALBUTEROL MDI INHALATION 8 GM INH INH SCH ×4 (01:13→20:08)
[2022-10-17 08:13] VITALS: BP_SYST 118
[2022-10-17] MEDS: METHYLPREDNISOLONE SOD SUCC 40 MG/ML VIAL IVP SCH ×2 (08:15→22:01)
[2022-10-17] MEDS: ASCORBIC ACID 500 MG TABLET GT SCH (08:16)
[2022-10-17] MEDS: MULTIVITAMINS TAB 1 TABLET GT SCH (08:18)
[2022-10-17] MEDS: FAMOTIDINE 20 MG TABLET GT SCH ×2 (08:19→22:02)
[2022-10-17] MEDS: GLYCOPYRROLATE 1 MG TABLET GT SCH ×3 (08:19→22:01)
[2022-10-17] MEDS: PEG 400/HYPROMELLOSE/GLYCERIN 15 ML DROPS EACH EYE SCH ×2 (08:22→22:00)
[2022-10-17 10:08] LABS: BASOPHILS % (AUTO) 0.2 % (0.0-2.0); EOSINOPHILS % (AUTO) 0.2 % (0.0-4.0); HEMATOCRIT 36.3 % (36-54); HEMOGLOBIN 11.8 g/dL (14.0-18.0); LYMPHOCYTES # (AUTO) 1.7 K/uL (1.0-5.5); LYMPHOCYTES % (AUTO) 18.7 % (20.5-51.5); MEAN CORPUSCULAR HEMOGLOBIN 29 pg (27-31); MEAN CORPUSCULAR HGB CONC 33 % (32-36); MEAN CORPUSCULAR VOLUME 89 fL (79.0-98.0); MONOCYTES # (AUTO) 0.6 K/uL (0.0-1.0); MONOCYTES % (AUTO) 6.6 % (1.7-9.3); NEUTROPHILS # (AUTO) 6.6 K/uL (1.8-7.7); NEUTROPHILS % (AUTO) 74.3 % (40.0-70.0); PLATELET COUNT (AUTO) 239 K/uL (130-430); RED BLOOD CELL COUNT(AUTO) 4.08 MIL/uL (4.2-6.2); WHITE BLOOD COUNT (AUTO) 8.9 K/uL (4.8-10.8)
[2022-10-17 10:47] LABS: ALBUMIN 2.8 g/dL (3.4-4.8); CREATININE 0.21 mg/dL (0.55-1.30); TOTAL BILIRUBIN 0.3 mg/dL (0.0-1.0)
[2022-10-17 12:23] VITALS: BP_SYST 100
[2022-10-17] MEDS: KCL 20 mEq in NS 1000 mL 1,000 ML IV SCH ×3 (14:14→22:44)
[2022-10-17] MEDS: AMIKACIN SULFATE IV SCH (16:50)
[2022-10-17] MEDS: D5W IV SCH (16:50)
[2022-10-17 17:23] VITALS: BP_SYST 107
[2022-10-17] MEDS: ENOXAPARIN SODIUM 40 MG/0.4 ML SYRINGE SUBCUT SCH (22:01)
[2022-10-18 00:43] VITALS: BP_SYST 130
[2022-10-18] MEDS: ALBUTEROL MDI INHALATION 8 GM INH INH SCH ×4 (01:51→19:55)
[2022-10-18 04:00] VITALS: BP_SYST 122
[2022-10-18 08:00] VITALS: BP_SYST 90
[2022-10-18] MEDS: METHYLPREDNISOLONE SOD SUCC 40 MG/ML VIAL IVP SCH ×2 (08:50→22:06)
[2022-10-18] MEDS: KCL 20 mEq in NS 1000 mL 1,000 ML IV SCH ×2 (08:50→18:25)
[2022-10-18] MEDS: FAMOTIDINE 20 MG TABLET GT SCH ×2 (08:51→22:05)
[2022-10-18] MEDS: ASCORBIC ACID 500 MG TABLET GT SCH (08:51)
[2022-10-18] MEDS: MULTIVITAMINS TAB 1 TABLET GT SCH (08:51)
[2022-10-18] MEDS: GLYCOPYRROLATE 1 MG TABLET GT SCH ×3 (08:51→22:05)
[2022-10-18] MEDS: PEG 400/HYPROMELLOSE/GLYCERIN 15 ML DROPS EACH EYE SCH ×2 (09:00→22:05)
[2022-10-18 11:20] VITALS: BP_SYST 113
[2022-10-18] MEDS: AMIKACIN SULFATE IV SCH (15:32)
[2022-10-18] MEDS: D5W IV SCH (15:32)
[2022-10-18 17:15] VITALS: BP_SYST 117
[2022-10-18] MEDS ORDERED: ALBUTEROL SULFATE 0.083% 2.5 MG/3 ML VIAL.NEB INH ONE (19:34)
[2022-10-18] MEDS: ENOXAPARIN SODIUM 40 MG/0.4 ML SYRINGE SUBCUT SCH (22:07)
[2022-10-19] VITALS (7 sets, daily range): BP systolic 102–115
[2022-10-19] MEDS: ALBUTEROL MDI INHALATION 8 GM INH INH SCH ×3 (00:34→20:21)
[2022-10-19] MEDS: KCL 20 mEq in NS 1000 mL 1,000 ML IV SCH ×3 (04:44→22:56)
[2022-10-19 07:23] LABS: BASOPHILS % (AUTO) 0.3 % (0.0-2.0); HEMATOCRIT 34.6 % (36-54); HEMOGLOBIN 11.5 g/dL (14.0-18.0); LYMPHOCYTES # (AUTO) 1.1 K/uL (1.0-5.5); LYMPHOCYTES % (AUTO) 9.8 % (20.5-51.5); MEAN CORPUSCULAR HEMOGLOBIN 29 pg (27-31); MEAN CORPUSCULAR HGB CONC 33 % (32-36); MEAN CORPUSCULAR VOLUME 88 fL (79.0-98.0); MONOCYTES # (AUTO) 0.5 K/uL (0.0-1.0); MONOCYTES % (AUTO) 4.6 % (1.7-9.3); NEUTROPHILS # (AUTO) 9.6 K/uL (1.8-7.7); NEUTROPHILS % (AUTO) 85.3 % (40.0-70.0); PLATELET COUNT (AUTO) 253 K/uL (130-430); RED BLOOD CELL COUNT(AUTO) 3.92 MIL/uL (4.2-6.2); RED CELL DISTRIBUTION WIDTH 14.2 % (9.0-15.0); WHITE BLOOD COUNT (AUTO) 11.3 K/uL (4.8-10.8)
[2022-10-19 08:17] LABS: CALCIUM 8.9 mg/dL (8.4-11.0); CREATININE 0.26 mg/dL (0.55-1.30)
[2022-10-19] MEDS: METHYLPREDNISOLONE SOD SUCC 40 MG/ML VIAL IVP SCH (09:27)
[2022-10-19] MEDS: MULTIVITAMINS TAB 1 TABLET GT SCH (09:28)
[2022-10-19] MEDS: GLYCOPYRROLATE 1 MG TABLET GT SCH ×3 (09:28→21:31)
[2022-10-19] MEDS: FAMOTIDINE 20 MG TABLET GT SCH ×2 (09:28→21:31)
[2022-10-19] MEDS: ASCORBIC ACID 500 MG TABLET GT SCH (09:28)
[2022-10-19] MEDS: PEG 400/HYPROMELLOSE/GLYCERIN 15 ML DROPS EACH EYE SCH ×2 (09:29→21:43)
[2022-10-19] MEDS: D5W IV SCH (15:33)
[2022-10-19] MEDS: AMIKACIN SULFATE IV SCH (15:33)
[2022-10-19] MEDS: ENOXAPARIN SODIUM 40 MG/0.4 ML SYRINGE SUBCUT SCH (21:31)
[2022-10-20] VITALS: BP_SYST 118
[2022-10-20] MEDS: ALBUTEROL MDI INHALATION 8 GM INH INH SCH ×3 (04:20→14:09)
[2022-10-20 06:55] LABS: BASOPHILS % (AUTO) 0.3 % (0.0-2.0); EOSINOPHILS % (AUTO) 0.2 % (0.0-4.0); HEMATOCRIT 35.4 % (36-54); HEMOGLOBIN 11.7 g/dL (14.0-18.0); LYMPHOCYTES # (AUTO) 2.7 K/uL (1.0-5.5); LYMPHOCYTES % (AUTO) 30.1 % (20.5-51.5); MEAN CORPUSCULAR HEMOGLOBIN 29 pg (27-31); MEAN CORPUSCULAR HGB CONC 33 % (32-36); MEAN CORPUSCULAR VOLUME 89 fL (79.0-98.0); MONOCYTES # (AUTO) 0.8 K/uL (0.0-1.0); MONOCYTES % (AUTO) 8.9 % (1.7-9.3); NEUTROPHILS # (AUTO) 5.4 K/uL (1.8-7.7); NEUTROPHILS % (AUTO) 60.5 % (40.0-70.0); PLATELET COUNT (AUTO) 239 K/uL (130-430); RED BLOOD CELL COUNT(AUTO) 3.98 MIL/uL (4.2-6.2); RED CELL DISTRIBUTION WIDTH 14.2 % (9.0-15.0); WHITE BLOOD COUNT (AUTO) 8.9 K/uL (4.8-10.8)
[2022-10-20 08:00] VITALS: BP_SYST 94
[2022-10-20 08:41] LABS: CALCIUM 8.7 mg/dL (8.4-11.0); CREATININE 0.29 mg/dL (0.55-1.30)
[2022-10-20] MEDS ORDERED: METHYLPREDNISOLONE SOD SUCC 40 MG/ML VIAL IVP SCH (09:00)
[2022-10-20] MEDS: ASCORBIC ACID 500 MG TABLET GT SCH (09:20)
[2022-10-20] MEDS: FAMOTIDINE 20 MG TABLET GT SCH (09:20)
[2022-10-20] MEDS: MULTIVITAMINS TAB 1 TABLET GT SCH (09:21)
[2022-10-20] MEDS: GLYCOPYRROLATE 1 MG TABLET GT SCH (09:26)
[2022-10-20] MEDS: PEG 400/HYPROMELLOSE/GLYCERIN 15 ML DROPS EACH EYE SCH (09:44)
[2022-10-20] MEDS: KCL 20 mEq in NS 1000 mL 1,000 ML IV SCH (09:56)
[2022-10-20 11:05] VITALS: BP_SYST 97
[2022-10-20 14:03] VITALS: BP_SYST 109
[2022-10-20 15:24] VITALS: BP_SYST 100
== END 2022-10-20 15:45 | DRG 177 ==
LOC: SED 04:15 → STU 05:53
PROVIDERS: ADMIT Family Medicine; ATTEND Family Medicine
DX: U07.1 COVID-19 (principal); J12.82 Pneumonia due to coronavirus disease 2019; J96.20 Acute and chronic respiratory failure, unspecified whether with hypoxia or hypercapnia; E44.0 Moderate protein-calorie malnutrition; N39.0 Urinary tract infection, site not specified; Z68.1 Body mass index [BMI] 19.9 or less, adult; G80.9 Cerebral palsy, unspecified; R13.10 Dysphagia, unspecified; Z93.0 Tracheostomy status; Z87.442 Personal history of urinary calculi; B96.5 Pseudomonas (aeruginosa) (mallei) (pseudomallei) as the cause of diseases classified elsewhere
CPT/HCPCS: 36415; 71045; 80048; 80053; 80150; 80202; 81000; 82550; 83605; 83735; 84484; 85025; 85379; 85610-TC; 85730-TC; 86140; 87040; 87070-TC; 87081; 87086; 87205-TC; 93005; 94640; 94664; 94668; 94760; 96365; 96367; 99285; G0378; J0278; J0456; J0696; J1030; J1650; J2543; J3370; J3480; J7050; J7060; J7613

== ENCOUNTER 2023-04-25 11:35 | Outpatient (CLI) | payer OTHER, MEDICAID ==
[~2023-04-25 11:35] MED LIST changes: +BISA10SU61 RC; +CARB15DR93 EACH EAR; +DOCU-144 GT; +ERYEYE EACH EYE; +IBUP-1970 GT; +IPRA3AMP9 INH; +LOPE-179 GT; +LOPE2CAP GT; +MIDO2.5T GT; +MINE3.5O13 OP; +MULT-1094 GT; +POLY15DR31 EACH EYE
== END 2023-04-25 20:52 | disposition home or self-care (01) ==
LOC: SCT 11:35
PROVIDERS: ATTEND Family Medicine
DX: K40.90 Unilateral inguinal hernia, without obstruction or gangrene, not specified as recurrent (principal); N28.89 Other specified disorders of kidney and ureter; J98.4 Other disorders of lung
CPT/HCPCS: 76376